=== PATIENT | female | born 1980 | race African-American/Black ===

== ENCOUNTER 2021-04-07 14:10 | Emergency (ER) | payer OTHER, SELFPAY ==
--- NOTE | ~2021-04-07 | CT_ITS ---
EXAMINATION: CT CERVICAL SPINE WITHOUT CONTRAST CLINICAL INFORMATION: 529 COMPARISON: None TECHNIQUE: 3 mm thin axial and reformatted 2 mm thin sagittal and coronal images of cervical spine were obtained. This CT examination was performed using dose optimization techniques as appropriate, variously including the following: *Automated exposure control *Adjustment of mA and/or kV according to patient size (this includes techniques or standardized protocols for targeted exams where dose is matched to indication/reason for exam; i.e. extremities or head) *Use of iterative reconstruction technique DLP: 529 mGy-cm FINDINGS: On sagittal reconstructed images there is reversal of cervical lordosis. The vertebral heights, alignment and disc heights are normal. The craniovertebral junction and the C1-C2 alignment is normal. There is no visible acute fracture, dislocation or lytic process seen. There is no subluxation. The prevertebral and paravertebral soft tissues are normal. The thyroid lobes are symmetrical and normal. Visualized bilateral submandibular and parotid glands are symmetrical and normal. The airway is widely patent. The lung apices are clear. CT/CT cervical spine wo con IMPRESSION: No acute fracture, dislocation or subluxation seen.
[2021-04-07 14:25] VITALS: BP 121/73; BP 124/72; PULSE 68; PULSE 94; RESP 16; TEMP 36.8; O2SAT 100; O2SAT 98; BMI 28.4
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
== END 2021-04-07 16:12 | disposition home or self-care (01) ==
PROVIDERS: Emergency Provider Emergency Medicine
DX: S13.4XXA Sprain of ligaments of cervical spine, initial encounter (principal); S16.1XXA Strain of muscle, fascia and tendon at neck level, initial encounter; V42.5XXA Car driver injured in collision with two- or three-wheeled motor vehicle in traffic accident, initial encounter; Y93.89 Activity, other specified; Y92.410 Unspecified street and highway as the place of occurrence of the external cause; Y99.9 Unspecified external cause status
CPT/HCPCS: 72125; 99283; 99284